=== PATIENT | female | born 1975 | race Caucasian/White ===

== ENCOUNTER 2024-02-14 10:56 | Outpatient (CLI) | payer BC, SELFPAY ==
--- NOTE | ~2024-02-14 | XR_ITS ---
SINGLE AP VIEW PELVIS Ordering provider: Brittany Chambers, [place] History: . L hip pain and coccydynia . Comparison: None. FINDINGS: BONES: No acute fracture or dislocation. HIP JOINT SPACES: Normal. SACROILIAC JOINT SPACES/LUMBAR SPINE: The sacroiliac joint spaces are normal. Normal visualized lower lumbar spine. PUBIC SYMPHYSIS: Normal. SOFT TISSUES: Normal. IMPRESSION: No acute osseous abnormality pelvis. Reviewed, dictated and finalized at location A. AGE WINDER
--- NOTE | ~2024-02-14 | XR_ITS ---
XR sacrum coccyx min 2V Ordering provider: Brittany Chambers, [place] History: . L hip pain and coccydynia . Comparison: None. FINDINGS: BONES: Lucency is seen in the second segment of the coccyx which may indicate a fracture. Follow-up a dvised. JOINTS: The sacroiliac joint spaces are normal. SOFT TISSUES: Normal. IMPRESSION: Highly suggestive fracture in the coccyx. Follow-up advised. Reviewed, dictated and finalized at location A. TH INFORMATION TECH
== END 2024-02-14 10:57 | disposition home or self-care (01) ==
PROVIDERS: PCP Chiropractor; Visit Provider Chiropractor
DX: M25.552 Pain in left hip (principal); M53.3 Sacrococcygeal disorders, not elsewhere classified
CPT/HCPCS: 72170; 72220